=== PATIENT | male | born 1980 | race Caucasian/White ===

== ENCOUNTER 2019-10-12 06:38 | Emergency (ER) | payer OTHER ==
[2019-10-12] MEDS ORDERED: TETANUS,DIPTH,PERTUSS P/F (BOOSTRIX) 0.5 ML VIAL IM ONE (07:05)
[2019-10-12] MEDS ORDERED: LIDOCAINE 1% INJ 20 ML 20 ML VIAL ONE (07:06)
--- NOTE | 2019-10-13 10:45 | Diagnostic Imaging Report ---
EXAMINATION: Left 2nd finger 3 views on 10/11 7:51 AM/ INDICATION: Injury to left 2nd finger with a table saw. 3 views of the left 2nd finger were obtained. There appears to be a soft tissue injury involving the distal aspect of the 2nd finger. The phalanges appear to be intact. No fractures are seen. No radiopaque soft tissue foreign body is detected. IMPRESSION: Soft tissue injury involving the distal 2nd finger. No acute bony abnormality is detected. Dictated by: Dictated on workstation # [id number]
== END 2019-10-12 08:32 | disposition home or self-care (01) ==
LOC: EDUNIT# 06:38 → ER 06:38
DX: S61.311A Laceration without foreign body of left index finger with damage to nail, initial encounter (principal); W31.2XXA Contact with powered woodworking and forming machines, initial encounter
CPT/HCPCS: 12011; 64450; 73140; 90471

== ENCOUNTER → 2022-06-05 | Outpatient (CLI) | payer OTHER | LOC: WOUNDCARE 12:04 | PROVIDERS: ATTEND Family Medicine | DX: T63.331A Toxic effect of venom of brown recluse spider, accidental (unintentional), initial encounter (principal); F17.210 Nicotine dependence, cigarettes, uncomplicated | CPT/HCPCS: 99212 ==